=== PATIENT | female | born 1955 | race African-American/Black ===

== ENCOUNTER 2020-10-21 22:48 | Inpatient (IN) | payer MEDICARE, MEDICAID ==
[~2020-10-21] VITALS: Ht 162.6 cm; Wt 78.1 kg
[2020-10-21] MEDS ORDERED: SODIUM CHLORIDE 0.9% 1,000 ML IV ONE (23:15)
[2020-10-21] MEDS ORDERED: VANCOMYCIN 1 G PREMIX 200 ML IV ONE (23:15)
[2020-10-21] MEDS ORDERED: LEVOFLOXACIN 750MG PREMIX 150 ML IV ONE (23:15)
[2020-10-21] MEDS ORDERED: METRONIDAZOLE 500 MG PREMIX 100 ML IV ONE (23:15)
[2020-10-21] MEDS ORDERED: ONDANSETRON HCL 4MG/2ML INJ IV STA (23:15)
[2020-10-22 00:03] LABS: BASOPHILS % 0.4 % (0.0-2.0); HEMATOCRIT. 42.2 % (36.0-48.0); HEMOGLOBIN. 13.8 g/dL (12.0-16.0); LYMPHOCYTES % 10.9 % (20.0-50.0); MEAN CORPUSCULAR HEMOGLOBIN 29.5 pg (28.0-32.0); MEAN CORPUSCULAR VOLUME 90.2 fL (81.0-99.0); MONOCYTES % 3.8 % (2.0-8.0); NEUTROPHILS % 83.9 % (40.0-76.0); PLATELET 517 x1000/uL (130-400); RED BLOOD CELL COUNT 4.68 mill/uL (4.2-5.4); RED CELL DISTRIBUTION WIDTH 16.1 % (11.6-14.6)
[2020-10-22 00:08] LABS: CHLORIDE 104 mEq/L (98-107)
[2020-10-22 01:23] LABS: BG BASE EXCESS -4.3 mmol/L (-2.0-2.0); BG CARBOXYHEMOGLOBIN 0.3 % (0.5-1.5); BG DEOXYHEMOGLOBIN 4.2 % (0.0-5.0); BG HCO3 ACT 18.4 mmol/L (22.0-26.0); BG METHEMOGLOBIN 0.2 % (0.0-1.5); BG OXYGEN SATURATION 95.8 % (92.0-98.5); BG OXYHEMOGLOBIN 95.3 % (94.0-97.0); BG PCO2 27.7 mmHg (35.0-45.0); BG PO2 78.7 mmHg (75.0-100.0); BG SAMPLE SITE LEFT BRACHIAL; BG TOTAL HEMOGLOBIN 13.3 g/dL (12.0-18.0); BG VENT MODE ROOM AIR
[2020-10-22] MEDS ORDERED: MORPHINE SULFATE 4 MG/ML CPJ (NOT FOR IM USE) IV SCH (04:00)
[2020-10-22] MEDS ORDERED: SODIUM CHLORIDE 0.9% 1,000 ML IV ONE (05:00)
[2020-10-22] MEDS ORDERED: IPRATROPIUM/ALBUTEROL 0.5-3(2.5)MG/3ML NEB NEB PRN (06:30)
[2020-10-22] MEDS ORDERED: CLONIDINE 0.1MG TABLET PO PRN (06:30)
[2020-10-22] MEDS ORDERED: NITROGLYCERIN 0.4MG TABLET SL SL PRN (06:30)
[2020-10-22] MEDS ORDERED: DOCUSATE SODIUM 100MG CAPSULE PO PRN (06:30)
[2020-10-22] MEDS ORDERED: ACETAMINOPHEN 325MG TABLET PO PRN (06:30)
[2020-10-22] MEDS ORDERED: NOREPINEPHRINE 8 MG in DEXT 5% WATER 242 ML IV PRN (06:30)
[2020-10-22] MEDS: INSULIN LISPRO 100 UNITS/ML SUBCUT SCH ×4 (08:20→21:00)
[2020-10-22] MEDS: ENOXAPARIN 40MG/0.4ML SYR SUBCUT SCH (08:21)
[2020-10-22] MEDS: ZINC SULFATE 220 MG ( 50 ) CAPSULE PO SCH (08:22)
[2020-10-22] MEDS: ASCORBIC ACID 500 MG TABLET PO SCH (08:22)
[2020-10-22] MEDS: AZITHROMYCIN 500 MG in DEXT 5% WATER 250 ML IV SCH (08:22)
[2020-10-22] MEDS: KETOROLAC 15MG/ML VIAL IV PRN ×3 (08:22→20:34)
[2020-10-22] MEDS: GUAIFENESIN/DM 600MG/30MG ER TAB 12HR PO SCH (08:22)
[2020-10-22] MEDS: CHOLECALCIFEROL (D3) 1000 UNIT TABLET PO SCH (08:23)
[2020-10-22] MEDS: ONDANSETRON HCL 4MG/2ML INJ IV PRN ×2 (08:35→15:46)
[2020-10-22] MEDS: BLOOD SUGAR DIAGNOSTIC STRIP TEST SCH ×4 (08:40→21:00)
[2020-10-22] MEDS ORDERED: CEFTRIAXONE 1 G PREMIX 50 ML IV SCH (09:00)
[2020-10-22 10:11] LABS: VITAMIN B12 SERUM 1121 pg/mL (211-911)
[2020-10-22 10:26] LABS: FOLIC ACID (FOLATE) SERUM > 20.00 ng/mL (>5.38)
[2020-10-22] MEDS ORDERED: SODIUM CHLORIDE 0.9% 500 ML IV NR (10:30)
[2020-10-22] MEDS ORDERED: VANCOMYCIN 750 MG PREMIX 150 ML IV SCH (12:30)
[2020-10-22 12:54] LABS: CLARITY URINE TURBID (CLEAR); COLOR URINE YELLOW (YELLOW); KETONES URINE NEGATIVE (NEGATIVE); LEUKOCYTE ESTERASE URINE 3+ (NEGATIVE); NITRITE URINE NEGATIVE (NEGATIVE); OCCULT BLOOD URINE 2+ (NEGATIVE); PH URINE 6.5 (4.5-8.0); PROTEIN URINE 1+ (NEGATIVE); SPECIFIC GRAVITY URINE 1.015 (1.005-1.030); UROBILINOGEN URINE 0.2 E.U./dL (0.2-1.0)
[2020-10-22 13:08] LABS: *AMPHETAMINES SCREEN URINE NEGATIVE (NEGATIVE); *BARBITURATES SCREEN URINE NEGATIVE (NEGATIVE); *BENZODIAZEPINES SCREEN URINE NEGATIVE (NEGATIVE)
[2020-10-22 13:09] LABS: *COCAINE SCREEN URINE NEGATIVE (NEGATIVE); CANNABINOID URINE SCREEN NEGATIVE (NEGATIVE); METHADONE URINE SCREEN NEGATIVE (NEGATIVE); OPIATES URINE SCREEN PRESUMTIVE POSITIVE (NEGATIVE); PHENCYCLIDINE URINE SCREEN NEGATIVE (NEGATIVE)
[2020-10-22] MEDS: VANCOMYCIN 750 MG PREMIX 150 ML IV SCH (14:45)
[2020-10-22] MEDS: DEXTROSE 50% WATER 50ML SYRINGE IV PRN (17:30)
[2020-10-22 18:01] LABS: CREATINE KINASE MB FRACTION 3.3 ng/mL (0.5-3.6)
[2020-10-22 23:45] VITALS: BP 91/55
[2020-10-23] MEDS: VANCOMYCIN 750 MG PREMIX 150 ML IV SCH ×2 (01:06→18:37)
[2020-10-23] MEDS: GUAIFENESIN/DM 600MG/30MG ER TAB 12HR PO SCH ×3 (01:07→20:09)
[2020-10-23] MEDS: LEVOFLOXACIN 750MG PREMIX 150 ML IV SCH ×3 (01:07→23:18)
[2020-10-23] MEDS: ASCORBIC ACID 500 MG TABLET PO SCH ×3 (01:08→21:00)
[2020-10-23] MEDS: ZOLPIDEM TARTRATE 5MG TABLET PO PRN ×2 (01:08→22:44)
[2020-10-23 04:00] VITALS: BP 100/53
[2020-10-23] MEDS ORDERED: FAMO20TA8 PO (04:43)
[2020-10-23] MEDS ORDERED: DULO60CA64 PO (04:43)
[2020-10-23] MEDS ORDERED: GABA-532 PO (04:43)
[2020-10-23] MEDS ORDERED: OXYB5TAB16 PO (04:43)
[2020-10-23] MEDS ORDERED: POTA-9 PO (04:43)
[2020-10-23] MEDS ORDERED: AMLO10TA80 PO (04:43)
[2020-10-23] MEDS ORDERED: BACL-141 PO (04:43)
[2020-10-23 05:15] VITALS: BP 92/55
[2020-10-23] MEDS: DEXTROSE 50% WATER 50ML SYRINGE IV PRN (06:53)
[2020-10-23] MEDS: BLOOD SUGAR DIAGNOSTIC STRIP TEST SCH ×4 (07:02→21:08)
[2020-10-23] MEDS: INSULIN LISPRO 100 UNITS/ML SUBCUT SCH ×4 (07:40→21:00)
[2020-10-23 07:56] LABS: HEMATOCRIT. 29.5 % (36.0-48.0); HEMOGLOBIN. 9.8 g/dL (12.0-16.0); MEAN CORPUSCULAR HEMOGLOBIN 29.7 pg (28.0-32.0); MEAN CORPUSCULAR VOLUME 89.8 fL (81.0-99.0); MEAN PLATELET VOLUME 8.4 fl (7.4-10.4); PLATELET 319 x1000/uL (130-400); RED BLOOD CELL COUNT 3.28 mill/uL (4.2-5.4); RED CELL DISTRIBUTION WIDTH 15.9 % (11.6-14.6)
[2020-10-23 08:00] VITALS: BP 90/50
[2020-10-23 08:02] LABS: CHLORIDE 112 mEq/L (98-107)
[2020-10-23 08:11] LABS: CREATINE KINASE 27 IU/L (26-192); PHOSPHORUS 2.7 mg/dL (2.5-4.9)
[2020-10-23 08:14] LABS: CREATINE KINASE MB FRACTION 2.2 ng/mL (0.5-3.6)
[2020-10-23] MEDS: POTASSIUM CHLORIDE 20MEQ TABLET SR PO NR ×2 (08:45→09:19)
[2020-10-23] MEDS: CHOLECALCIFEROL (D3) 1000 UNIT TABLET PO SCH (09:17)
[2020-10-23] MEDS: ZINC SULFATE 220 MG ( 50 ) CAPSULE PO SCH (09:18)
[2020-10-23] MEDS: ENOXAPARIN 40MG/0.4ML SYR SUBCUT SCH (09:19)
[2020-10-23] MEDS: KETOROLAC 15MG/ML VIAL IV PRN ×3 (09:20→21:38)
[2020-10-23] MEDS: AZITHROMYCIN 500 MG in DEXT 5% WATER 250 ML IV SCH (10:16)
[2020-10-23] MEDS ORDERED: MAGNESIUM 2 G PREMIX 50 ML IV NR (10:30)
[2020-10-23] MEDS ORDERED: SODIUM CHLORIDE 0.9% 1,000 ML IV SCH (11:00)
[2020-10-23] MEDS ORDERED: SODIUM CHLORIDE 0.9% 1,000 ML IV ONE (11:15)
[2020-10-23 12:00] VITALS: BP 100/60
[2020-10-23] MEDS ORDERED: POTASSIUM CHLORIDE INJ 40 MEQ in DEXT 5% WATER 250 ML IV NR (12:00)
[2020-10-23] MEDS: MULTIVITAMINS,THER W-MINERALS TABLET PO SCH (12:51)
[2020-10-23] MEDS: MAGNESIUM/ALUMINUM HYDROXIDE/SIMETHICONE 30ML UDC PO PRN (13:40)
[2020-10-23] MEDS: ONDANSETRON HCL 4MG/2ML INJ IV PRN (13:41)
[2020-10-23] MEDS ORDERED: POTASSIUM CHLORIDE 20MEQ TABLET SR PO NR (14:00)
[2020-10-23] MEDS: ACETAMINOPHEN 325MG TABLET PO PRN ×2 (14:12→22:43)
[2020-10-23 16:23] VITALS: BP 95/61
[2020-10-23 16:32] LABS: PLATELET ESTIMATE NORMAL
[2020-10-23 20:00] VITALS: BP 92/47
[2020-10-23] MEDS: SODIUM CHLORIDE 0.9% 1,000 ML IV SCH (21:08)
[2020-10-23] MEDS: GUAIFENESIN 200MG/10ML SUGAR FREE UDC PO PRN (22:10)
[2020-10-24] VITALS: BP 103/61
[2020-10-24 04:00] VITALS: BP 102/60
[2020-10-24 06:30] LABS: BASOPHILS % 0.3 % (0.0-2.0); EOSINOPHILS % 0.9 % (0.0-5.0); HEMATOCRIT. 25.5 % (36.0-48.0); HEMOGLOBIN. 8.7 g/dL (12.0-16.0); MEAN CORPUSCULAR VOLUME 90.1 fL (81.0-99.0); MEAN PLATELET VOLUME 8.1 fl (7.4-10.4); NEUTROPHILS % 81.8 % (40.0-76.0); PLATELET 268 x1000/uL (130-400); RED BLOOD CELL COUNT 2.82 mill/uL (4.2-5.4); RED CELL DISTRIBUTION WIDTH 15.8 % (11.6-14.6)
[2020-10-24] MEDS: BLOOD SUGAR DIAGNOSTIC STRIP TEST SCH ×4 (06:30→20:33)
[2020-10-24 06:59] LABS: CHLORIDE 117 mEq/L (98-107)
[2020-10-24] MEDS: INSULIN LISPRO 100 UNITS/ML SUBCUT SCH ×4 (07:39→20:33)
[2020-10-24 08:00] VITALS: BP 90/54
[2020-10-24] MEDS: AZITHROMYCIN 500 MG in DEXT 5% WATER 250 ML IV SCH (08:38)
[2020-10-24] MEDS: KETOROLAC 15MG/ML VIAL IV PRN ×3 (08:38→21:16)
[2020-10-24] MEDS: CHOLECALCIFEROL (D3) 1000 UNIT TABLET PO SCH (08:39)
[2020-10-24] MEDS: ASCORBIC ACID 500 MG TABLET PO SCH ×2 (08:39→20:25)
[2020-10-24] MEDS: GUAIFENESIN/DM 600MG/30MG ER TAB 12HR PO SCH ×2 (08:39→20:25)
[2020-10-24] MEDS: ENOXAPARIN 40MG/0.4ML SYR SUBCUT SCH (08:39)
[2020-10-24] MEDS: MULTIVITAMINS,THER W-MINERALS TABLET PO SCH (08:39)
[2020-10-24] MEDS: ZINC SULFATE 220 MG ( 50 ) CAPSULE PO SCH (08:39)
[2020-10-24 12:00] VITALS: BP 100/61
[2020-10-24] MEDS: SODIUM CHLORIDE 0.9% 1,000 ML IV SCH ×2 (12:03→23:40)
[2020-10-24] MEDS: VANCOMYCIN 750 MG PREMIX 150 ML IV SCH (12:14)
[2020-10-24] MEDS: MAGNESIUM/ALUMINUM HYDROXIDE/SIMETHICONE 30ML UDC PO PRN (13:49)
[2020-10-24 15:50] VITALS: BP 89/48
[2020-10-24] MEDS: ZOLPIDEM TARTRATE 5MG TABLET PO PRN (20:25)
[2020-10-24] MEDS: PREGABALIN 25MG CAPSULE PO SCH (20:25)
[2020-10-25] VITALS: BP 103/60
[2020-10-25 04:00] VITALS: BP 102/62
[2020-10-25] MEDS: LEVOFLOXACIN 750MG PREMIX 150 ML IV SCH (04:33)
[2020-10-25] MEDS: KETOROLAC 15MG/ML VIAL IV PRN ×4 (05:04→23:27)
[2020-10-25] MEDS: DEXTROSE 50% WATER 50ML SYRINGE IV PRN (05:57)
[2020-10-25] MEDS: VANCOMYCIN 750 MG PREMIX 150 ML IV SCH (06:03)
[2020-10-25] MEDS: INSULIN LISPRO 100 UNITS/ML SUBCUT SCH ×4 (06:03→20:52)
[2020-10-25] MEDS: BLOOD SUGAR DIAGNOSTIC STRIP TEST SCH ×4 (06:03→20:53)
[2020-10-25 07:00] LABS: CHLORIDE 116 mEq/L (98-107)
[2020-10-25 08:00] VITALS: BP 95/51
[2020-10-25] MEDS: ASCORBIC ACID 500 MG TABLET PO SCH ×2 (09:51→20:47)
[2020-10-25] MEDS: AZITHROMYCIN 500 MG in DEXT 5% WATER 250 ML IV SCH (09:51)
[2020-10-25] MEDS: ENOXAPARIN 40MG/0.4ML SYR SUBCUT SCH (09:52)
[2020-10-25] MEDS: PREGABALIN 25MG CAPSULE PO SCH ×2 (09:52→20:47)
[2020-10-25] MEDS: ZINC SULFATE 220 MG ( 50 ) CAPSULE PO SCH (09:52)
[2020-10-25] MEDS: MULTIVITAMINS,THER W-MINERALS TABLET PO SCH (09:52)
[2020-10-25] MEDS: CHOLECALCIFEROL (D3) 1000 UNIT TABLET PO SCH (09:52)
[2020-10-25] MEDS: GUAIFENESIN/DM 600MG/30MG ER TAB 12HR PO SCH ×2 (09:55→20:47)
[2020-10-25 12:00] VITALS: BP 85/37
[2020-10-25] MEDS: MEROPENEM 1,000 MG in SODIUM CHLORIDE 0.9% 100 ML IV SCH ×2 (12:18→20:52)
[2020-10-25] MEDS: SODIUM CHLORIDE 0.9% 1,000 ML IV SCH ×2 (12:20→20:47)
[2020-10-25 16:00] VITALS: BP 99/50
[2020-10-25] MEDS: GUAIFENESIN 200MG/10ML SUGAR FREE UDC PO PRN (17:57)
[2020-10-25 20:00] VITALS: BP 100/57
[2020-10-25] MEDS: ZOLPIDEM TARTRATE 5MG TABLET PO PRN (20:47)
[2020-10-26] VITALS: BP 101/52
[2020-10-26] MEDS: MEROPENEM 1,000 MG in SODIUM CHLORIDE 0.9% 100 ML IV SCH ×3 (03:41→21:06)
[2020-10-26 04:00] VITALS: BP 98/54
[2020-10-26] MEDS: KETOROLAC 15MG/ML VIAL IV PRN ×2 (06:49→16:00)
[2020-10-26] MEDS: BLOOD SUGAR DIAGNOSTIC STRIP TEST SCH ×4 (06:50→21:06)
[2020-10-26] MEDS: INSULIN LISPRO 100 UNITS/ML SUBCUT SCH ×4 (06:50→21:00)
[2020-10-26] MEDS: ASCORBIC ACID 500 MG TABLET PO SCH ×2 (09:08→21:06)
[2020-10-26] MEDS: MULTIVITAMINS,THER W-MINERALS TABLET PO SCH (09:09)
[2020-10-26] MEDS: GUAIFENESIN/DM 600MG/30MG ER TAB 12HR PO SCH ×2 (09:09→21:06)
[2020-10-26] MEDS: CHOLECALCIFEROL (D3) 1000 UNIT TABLET PO SCH (09:09)
[2020-10-26] MEDS: ZINC SULFATE 220 MG ( 50 ) CAPSULE PO SCH (09:09)
[2020-10-26] MEDS: PREGABALIN 25MG CAPSULE PO SCH ×2 (09:09→21:06)
[2020-10-26] MEDS: ENOXAPARIN 40MG/0.4ML SYR SUBCUT SCH (09:10)
[2020-10-26 10:26] VITALS: BP 109/60
[2020-10-26] MEDS: ACETAMINOPHEN 325MG TABLET PO PRN (11:07)
[2020-10-26 12:01] VITALS: BP 108/60
[2020-10-26] MEDS: SODIUM CHLORIDE 0.9% 1,000 ML IV SCH (15:56)
[2020-10-26 16:04] VITALS: BP 123/61
[2020-10-26 20:00] VITALS: BP 110/71
[2020-10-26] MEDS: ZOLPIDEM TARTRATE 5MG TABLET PO PRN (21:06)
[2020-10-27] VITALS: BP 100/50
[2020-10-27] MEDS: KETOROLAC 15MG/ML VIAL IV PRN ×3 (01:37→21:25)
[2020-10-27 04:00] VITALS: BP 103/58
[2020-10-27] MEDS: MEROPENEM 1,000 MG in SODIUM CHLORIDE 0.9% 100 ML IV SCH ×4 (05:25→21:24)
[2020-10-27] MEDS: SODIUM CHLORIDE 0.9% 1,000 ML IV SCH ×2 (05:25→17:31)
[2020-10-27] MEDS: BLOOD SUGAR DIAGNOSTIC STRIP TEST SCH ×4 (06:28→21:00)
[2020-10-27] MEDS: INSULIN LISPRO 100 UNITS/ML SUBCUT SCH ×4 (06:28→21:00)
[2020-10-27 08:00] VITALS: BP 107/57
[2020-10-27] MEDS: CHOLECALCIFEROL (D3) 1000 UNIT TABLET PO SCH (08:30)
[2020-10-27] MEDS: ENOXAPARIN 40MG/0.4ML SYR SUBCUT SCH (08:30)
[2020-10-27] MEDS: PREGABALIN 25MG CAPSULE PO SCH (08:30)
[2020-10-27] MEDS: ZINC SULFATE 220 MG ( 50 ) CAPSULE PO SCH (08:30)
[2020-10-27] MEDS: GUAIFENESIN/DM 600MG/30MG ER TAB 12HR PO SCH ×2 (08:30→21:24)
[2020-10-27] MEDS: MULTIVITAMINS,THER W-MINERALS TABLET PO SCH (08:30)
[2020-10-27] MEDS: ASCORBIC ACID 500 MG TABLET PO SCH ×2 (08:30→21:24)
[2020-10-27 12:00] VITALS: BP 124/63
[2020-10-27 16:00] VITALS: BP 121/68
[2020-10-27 20:00] VITALS: BP 128/62
[2020-10-27] MEDS: PREGABALIN 50 MG CAPSULE PO SCH (21:24)
[2020-10-28] VITALS: BP 106/67
[2020-10-28 04:00] VITALS: BP 116/62
[2020-10-28] MEDS: MEROPENEM 1,000 MG in SODIUM CHLORIDE 0.9% 100 ML IV SCH ×2 (04:25→12:10)
[2020-10-28] MEDS: KETOROLAC 15MG/ML VIAL IV PRN ×2 (04:27→12:09)
[2020-10-28] MEDS: BLOOD SUGAR DIAGNOSTIC STRIP TEST SCH ×2 (07:00→12:10)
[2020-10-28] MEDS: INSULIN LISPRO 100 UNITS/ML SUBCUT SCH ×2 (07:01→12:40)
[2020-10-28] MEDS: ZINC SULFATE 220 MG ( 50 ) CAPSULE PO SCH (08:36)
[2020-10-28] MEDS: CHOLECALCIFEROL (D3) 1000 UNIT TABLET PO SCH (08:36)
[2020-10-28] MEDS: ASCORBIC ACID 500 MG TABLET PO SCH (08:36)
[2020-10-28] MEDS: GUAIFENESIN/DM 600MG/30MG ER TAB 12HR PO SCH (08:36)
[2020-10-28] MEDS: PREGABALIN 50 MG CAPSULE PO SCH (08:36)
[2020-10-28] MEDS: MULTIVITAMINS,THER W-MINERALS TABLET PO SCH (08:36)
[2020-10-28] MEDS: ENOXAPARIN 40MG/0.4ML SYR SUBCUT SCH (08:37)
[2020-10-28] MEDS: SODIUM CHLORIDE 0.9% 1,000 ML IV SCH (08:37)
[2020-10-28 10:47] VITALS: BP 126/61
[2020-10-28 12:00] VITALS: BP 128/64
[2020-10-28] MEDS ORDERED: SULF1TAB48 MT (13:06)
[2020-10-28 13:07] VITALS: BP 128/64
== END 2020-10-28 14:55 | DRG 871 ==
LOC: ER 22:48 → 7WST 10-22 04:39 → SUPCPDRO 10-22 06:25 → EDBEDREQSVC 10-22 15:28 → CANRESERV 10-22 21:09 → ENRESERV 10-22 21:09 → 8WST 10-23 05:31
PROVIDERS: ADMIT Internal Medicine; ATTEND Internal Medicine
PROC: 05HY33Z Insertion of Infusion Device into Upper Vein, Percutaneous Approach (ICD-10-PCS; principal; 2020-10-22)
PROC: B54MZZA Ultrasonography of Right Upper Extremity Veins, Guidance (ICD-10-PCS; 2020-10-22)
DX: A41.59 Other Gram-negative sepsis (principal); R65.21 Severe sepsis with septic shock; E43 Unspecified severe protein-calorie malnutrition; G92 Toxic encephalopathy; N39.0 Urinary tract infection, site not specified; E87.2 Acidosis; Z16.12 Extended spectrum beta lactamase (ESBL) resistance; I13.0 Hypertensive heart and chronic kidney disease with heart failure and stage 1 through stage 4 chronic kidney disease, or unspecified chronic kidney disease; D64.9 Anemia, unspecified; E11.22 Type 2 diabetes mellitus with diabetic chronic kidney disease; E87.6 Hypokalemia; G35 Multiple sclerosis; Z20.822 Contact with and (suspected) exposure to COVID-19; K21.9 Gastro-esophageal reflux disease without esophagitis; E11.42 Type 2 diabetes mellitus with diabetic polyneuropathy; N18.9 Chronic kidney disease, unspecified; K56.41 Fecal impaction; I50.9 Heart failure, unspecified; Z68.29 Body mass index [BMI] 29.0-29.9, adult; Z88.0 Allergy status to penicillin; Z88.2 Allergy status to sulfonamides; Z87.01 Personal history of pneumonia (recurrent); Z86.718 Personal history of other venous thrombosis and embolism
CPT/HCPCS: 36415; 36600; 71045; 74176; 76705; 76937; 80048; 80053; 80061; 80202; 80305; 81003; 82040; 82375; 82550; 82553; 82607; 82746; 82805; 82962; 83036; 83540; 83550; 83605; 83735; 83880; 84100; 84134; 84145; 84484; 85025; 87077; 87186; 92610; 93005; 93306; 93970; 99291; A6261; C1725; C9803; J0456; J1650; J1885; J1956; J2185; J2270; J2405; J3370; J3475; J3480; J3490; J7030; J7050; J7060; U0003; U0005; A4315